=== PATIENT | male | born 1980 | race Caucasian/White ===

== ENCOUNTER 2018-09-07 06:02 | Day surgery (SDC) | payer OTHER ==
[~2018-09-07 06:02] MED LIST: CEFAZOLIN 2 GM/50 ML (PMX) 50 ML IVPB; SOD CHLORIDE 0.9% 1,000 ML IV
[2018-09-07 06:59] LABS: ADD MAN DIFF? NO
[2018-09-07] MEDS ORDERED: DESFLURANE 15 MIN (07:00)
[2018-09-07] MEDS ORDERED: DEXAMETHASONE 4 MG/ML 5 ML INJ (07:00)
[2018-09-07 07:03] LABS: BASOPHILS % 0.2 % (0.0-2.0); EOSINOPHILS # 0.1 10^3/ul (0.0-0.5); EOSINOPHILS % 1.4 % (0.0-7.0); HEMATOCRIT 35.1 % (42.0-52.0); HEMOGLOBIN 11.8 g/dl (14.0-18.0); LYMPHOCYTES # 2.6 10^3/ul (0.8-2.9); LYMPHOCYTES % 29.1 % (15.0-51.0); MEAN CORPUSCULAR HEMOGLOBIN 30.3 pg (29.0-33.0); MEAN CORPUSCULAR HGB CONC 33.6 g/dl (32.0-37.0); MEAN CORPUSCULAR VOLUME 90.2 fl (82.0-101.0); MEAN PLATELET VOLUME 9.9 fl (7.4-10.4); MONOCYTE # 0.8 10^3/ul (0.3-0.9); MONOCYTES % 8.7 % (0.0-11.0); NEUTROPHIL # 5.4 10^3/ul (1.6-7.5); NEUTROPHILS % 60.4 % (39.0-77.0); PLATELET COUNT 278 10^3/UL (140-415); RED BLOOD COUNT 3.89 10^6/ul (4.70-6.10); RED CELL DISTRIBUTION WIDTH 12.4 % (11.5-14.5)
[2018-09-07 07:22] LABS: ALANINE AMINOTRANSFERASE 28 IU/L (13-69); ALBUMIN 4.3 g/dl (3.3-4.9); ALBUMIN/GLOBULIN RATIO 1.53; ALKALINE PHOSPHATASE 88 IU/L (42-121); ANION GAP 8 (5-13); ASPARTATE AMINO TRANSFERASE 33 IU/L (15-46); BLOOD UREA NITROGEN 16 mg/dl (7-20); CALCIUM 9.7 mg/dl (8.4-10.2); CARBON DIOXIDE 28 mmol/L (21-31); CHLORIDE 108 mmol/L (97-110); CREATININE 1.24 mg/dl (0.61-1.24); Estimated GFR > 60 mL/min (>60); GLUCOSE 112 mg/dl (70-220); INR 0.91; POTASSIUM 3.9 mmol/L (3.5-5.1); PROTIME 12.4 Sec (11.9-14.9); SODIUM 144 mmol/L (135-144); TOTAL PROTEIN 7.1 g/dl (6.1-8.1)
[2018-09-07 07:23] LABS: PARTIAL THROMBOPLASTIN TIME 29.3 Sec (23.0-35.0)
[2018-09-07] MEDS ORDERED: MIDAZOLAM 1 MG/ML 2 ML INJ IV (07:30)
[2018-09-07] MEDS ORDERED: TRIMETHOBENZAMIDE 100 MG/ML VIAL IM (07:30)
[2018-09-07] MEDS ORDERED: ONDANSETRON 4 MG INJ IV (07:30)
[2018-09-07] MEDS ORDERED: FENTAnyl 50 MCG/ML VIAL IV ×3 (07:30)
[2018-09-07] MEDS ORDERED: hydrALAzine 20 MG INJ IV (07:30)
[2018-09-07] MEDS ORDERED: EPHEDrine SULFATE 50 MG/5 ML SYG IV (07:30)
[2018-09-07] MEDS ORDERED: ALBUTEROL 0.083% (NEB) 2.5 MG/3 ML AMP HHN (07:30)
[2018-09-07] MEDS ORDERED: IPRATROPIUM (NEB) 0.5 MG/2.5 ML AMP HHN (07:30)
[2018-09-07] MEDS ORDERED: MEPERIDINE 25 MG INJ IV (07:30)
[2018-09-07] MEDS ORDERED: DIPHENHYDRAMINE 50 MG INJ IV (07:30)
[2018-09-07] MEDS ORDERED: HYDROmorphONE 1 MG/5 ML IV SYRINGE IV (07:30)
[2018-09-07] MEDS ORDERED: LABETALOL HCL 20MG INJ IV (07:30)
[2018-09-07] MEDS ORDERED: OXYCODONE/ACETAMINOPHEN (5/325) TAB PO (07:30)
[2018-09-07] MEDS ORDERED: MIDAZOLAM 1 MG/ML 2 ML INJ (07:53)
[2018-09-07] MEDS ORDERED: PROPOFOL 20 ML (07:53)
[2018-09-07] MEDS ORDERED: CEFAZOLIN 1 GM INJ (07:53)
[2018-09-07] MEDS ORDERED: NEOSTIGMINE 3 MG/3 ML SYRINGE (07:53)
[2018-09-07] MEDS ORDERED: FENTAnyl 50 MCG/ML VIAL (07:53)
[2018-09-07] MEDS ORDERED: ROCURONIUM 50 MG INJ (07:53)
[2018-09-07] MEDS ORDERED: ONDANSETRON 4 MG INJ (07:53)
[2018-09-07] MEDS ORDERED: ROPIVACAINE 0.5 % 30 ML VIAL (07:59)
[2018-09-07] MEDS ORDERED: SUGAMMADEX SODIUM 200 MG/2 ML VIAL IV (08:31)
[2018-09-07] MEDS ORDERED: HYDROCODONE/APAP (5/325) TAB PO (09:00)
[2018-09-07] MEDS: HYDROmorphONE 1 MG/5 ML IV SYRINGE IV ×2 (09:16→09:38)
[2018-09-07] MEDS: OXYCODONE/ACETAMINOPHEN (5/325) TAB PO (10:08)
== END 2018-09-07 10:35 | disposition home or self-care (01) ==
LOC: SDS 06:02
DX: K82.4 Cholesterolosis of gallbladder (principal)
CPT/HCPCS: 47562; 71045; 80053; 85025; 85610; 85730; 88304; 93005